=== PATIENT | male | born 1980 | race African-American/Black ===

== ENCOUNTER 2024-09-11 15:58 | Emergency (ER) | payer OTHER ==
[~2024-09-11] VITALS: Ht 172.7 cm; Wt 67.0 kg
[2024-09-11 16:09] VITALS: BP 102/60; TEMP 36.8; O2SAT 99
[2024-09-11 16:12] VITALS: PULSE 72; RESP 16; O2SAT 100
== END 2024-09-11 18:41 | disposition left against medical advice (07) ==
LOC: ER 15:58
DX: R06.02 Shortness of breath (principal); J45.909 Unspecified asthma, uncomplicated; Z53.21 Procedure and treatment not carried out due to patient leaving prior to being seen by health care provider